=== PATIENT | female | born 1980 | race Caucasian/White ===

== ENCOUNTER → 2019-12-23 | Outpatient (CLI) | payer BC ==
[2019-12-23 13:19] LABS: BILIRUBIN,URINE NEGATIVE (NEG); CLARITY,URINE CLEAR; COLOR,URINE YELLOW; NITRITE,URINE NEGATIVE (NEG); PH,URINE 7.5 (<5.0-8.0); PROTEIN,URINE NEGATIVE (NEG-TRACE); UROBILINOGEN,URINE 0.2 mg/dL (0.2 mg/dL)
[2019-12-23 13:29] LABS: BACTERIA,URINE FEW /HPF (0-FEW); RBC,URINE 0 /HPF (0-2); SQUAMOUS EPITHELIAL CELL,UR MOD /LPF
[2019-12-23 13:55] LABS: BASO # 0.1 x10^3/uL (0.0-0.2); BASO % 1 % (0-3); EOS # 0.1 x10^3/uL (0.0-0.7); EOS % 2 % (0-3); HEMATOCRIT 38.7 % (36.0-47.0); LYMPH # 1.6 x10^3/uL (1.0-4.8); LYMPH % 18 % (24-48); MEAN CORPUSCULAR HEMOGLOBIN 28 pg (25-35); MEAN CORPUSCULAR HGB CONC 34 g/dL (31-37); MEAN CORPUSCULAR VOLUME 84 fL (79-100); MONO # 0.4 x10^3/uL (0.0-1.1); MONO % 5 % (0-9); NEUT # 6.7 x10^3/uL (1.8-7.7); NEUT % 75 % (31-73); PLATELET COUNT 306 x10^3/uL (140-400); RED BLOOD COUNT 4.59 x10^6/uL (3.50-5.40); RED CELL DISTRIBUTION WIDTH 15.1 % (11.5-14.5); WHITE BLOOD COUNT 8.9 x10^3/uL (4.0-11.0)
[2019-12-23 14:19] LABS: ALBUMIN 3.5 g/dL (3.4-5.0); ALBUMIN/GLOBULIN RATIO 0.8 (1.0-1.7); CALCIUM 8.7 mg/dL (8.5-10.1); CREATININE 0.8 mg/dL (0.6-1.0); GFR 80.7; POTASSIUM 3.6 mmol/L (3.5-5.1); TOTAL BILIRUBIN 0.3 mg/dL (0.2-1.0); TOTAL PROTEIN 7.7 g/dL (6.4-8.2)
== END | disposition home or self-care (01) ==
LOC: SURGPAT 12:24
PROVIDERS: ATTEND Obstetrics & Gynecology
DX: Z01.812 Encounter for preprocedural laboratory examination (principal); Z20.828 Contact with and (suspected) exposure to other viral communicable diseases; R10.2 Pelvic and perineal pain; Z91.09 Other allergy status, other than to drugs and biological substances
CPT/HCPCS: 80053; 81001; 85025; U0003

== ENCOUNTER 2019-12-28 06:05 | Observation (INO) | payer BC ==
[~2019-12-28] VITALS: Ht 162.6 cm; Wt 124.3 kg
[2019-12-28] MEDS ORDERED: ESTROGENS, CONJ VAGINAL CREAM 30GM TUBE. ONE (06:59)
[2019-12-28] MEDS ORDERED: INDIGOTINDISULFONATE SODIUM 40 MG/5 ML AMPUL. ONE (06:59)
[2019-12-28] MEDS ORDERED: BUPIVACAINE-EPI 0.5%-1:200000 MPF 30 ML VIAL. ONE (06:59)
[2019-12-28] MEDS ORDERED: BUPIVACAINE MPF 0.25% 30 ML VIAL. ONE (06:59)
[2019-12-28] MEDS ORDERED: HYDROmorphone 2 MG/ML VIAL IV PRN (07:00)
[2019-12-28] MEDS ORDERED: PROCHLORPERAZINE 10 MG/2 ML VIAL. IV PRN (07:00)
[2019-12-28] MEDS ORDERED: IV RINGERS,LACTATED 1000ML 1,000 ML IV SCH (07:00)
[2019-12-28] MEDS ORDERED: LIDOCAINE 1% PF 2 ML VIAL. ID PRN (07:00)
[2019-12-28] MEDS ORDERED: fentaNYL PF VIAL 100 MCG/2 ML VIAL IV PRN (07:00)
[2019-12-28] MEDS ORDERED: ONDANSETRON PF 4 MG/2 ML VIAL. IV PRN ×2 (07:00→12:30)
[2019-12-28] MEDS ORDERED: PROPOFOL 10 MG/ML (20ML) VIAL. IV ONE (07:10)
[2019-12-28] MEDS ORDERED: ROCURONIUM 50 MG/5 ML VIAL. ONE ×2 (07:10→08:34)
[2019-12-28] MEDS ORDERED: LIDOCAINE 2% PF 5 ML VIAL. ONE (07:10)
[2019-12-28] MEDS ORDERED: fentaNYL PF VIAL 100 MCG/2 ML VIAL ONE ×3 (07:10→12:00)
[2019-12-28] MEDS ORDERED: SUCCINYLCHOLINE 200 MG/10 ML VIAL. ONE (07:10)
[2019-12-28] MEDS ORDERED: DEXAMETHASONE SOD PHOS 4 MG/ML VIAL ONE ×2 (07:49→08:07)
[2019-12-28] MEDS ORDERED: DESFLURANE 61 TO 120 MINUTES IH ONE (07:49)
[2019-12-28] MEDS ORDERED: PHENYLEPHRINE in 0.9% NACL PF 1 MG/10 ML SYRINGE. IV ONE (08:14)
[2019-12-28] MEDS ORDERED: CALCIUM CHLORIDE 1,000 MG/10 ML DISP.SYRIN ONE (08:24)
[2019-12-28] MEDS ORDERED: NEOSTIGMINE METHYLSULFATE 5 MG/5 ML SYRINGE. ONE (08:24)
[2019-12-28] MEDS ORDERED: ONDANSETRON PF 4 MG/2 ML VIAL. ONE (08:24)
[2019-12-28] MEDS ORDERED: METHYLENE BLUE 0.5% 10ml AMPULE. ONE ×2 (09:23→11:05)
[2019-12-28] MEDS: fentaNYL PF VIAL 100 MCG/2 ML VIAL IV PRN ×2 (12:04→12:12)
--- NOTE | 2019-12-28 12:16 | PDOC ---
BRIEF OPERATIVE NOTE Date: Dec 28, 2019 Pre-Op Diagnosis pelvic pain, pelvic congestion suggested on sonogram, enlarged uterus, menorrhagia Post-Op Diagnosis same plus pelvic adhesive disease and left sided tuboovarian enlarged complex and cyst adhesed to sidewall and desc colon Procedure Performed LAVH/BSO/lysis of adhesions/cystoscopy/rigid sigmoid scope by Dr. Frias Surgeon Dr. Kaye Bower and intraoperative consult with Dr. Frias general home health occupational therapist Montez Shelley, FA came in to help also Anesthesiologist Dr. Prabhakar Anesthesia Type: General Blood Loss 250cc IV Fluid 2L Urine Output 200cc clear via johnson Specimens Obtained cervix, uterus, bilateral tubes and ovaries, pieces of the cystic complex were also removed during the adhesiolysis Findings enlarged RV uterus, normal right tube and ovary, enlarged cystic complex on left tube and ovary adhesed to sidewall and desc colon; colorectal adhesions to posterior uterus and left side in the posterior cul-de-sac normal bladder with bilateral ureters seen jetting green fluid into bladder (after methylene blue given) rigid sigmoid scope per Dr. Frias Complications none Operative Note [id number] KAYE BOWER MD Dec 28, 2019 12:16
[2019-12-28] MEDS ORDERED: MORPHINE SULFATE 2 MG/ML VIAL. ONE (12:18)
[2019-12-28] MEDS: MORPHINE SULFATE 2 MG/ML VIAL. IV PRN ×2 (12:21→12:25)
[2019-12-28] MEDS ORDERED: SIMETHICONE 80 MG TAB.CHEW PO PRN (12:30)
[2019-12-28] MEDS ORDERED: ZOLPIDEM 5 MG TABLET. PO PRN (12:30)
[2019-12-28] MEDS ORDERED: diphenhydrAMINE HCL 25 MG CAPSULE PO PRN (12:30)
[2019-12-28] MEDS ORDERED: NALOXONE 0.4 MG/ML VIAL. IV PRN (12:30)
[2019-12-28] MEDS ORDERED: 0.9 % SODIUM CHLORIDE 10 ML DISP.SYRIN. IV PRN (12:30)
[2019-12-28] MEDS ORDERED: HYDROcodone/APAP 5/325MG 1 TAB TABLET PO PRN (12:30)
[2019-12-28] MEDS ORDERED: LACTULOSE 20 GM/30 ML SOLUTION. PO PRN (12:30)
[2019-12-28] MEDS ORDERED: diphenhydrAMINE 50 MG/ML VIAL IV PRN (12:30)
[2019-12-28] MEDS ORDERED: MORPHINE SULFATE 2 MG/ML VIAL. IV PRN (12:30)
[2019-12-28] MEDS ORDERED: HYDROmorphone 2 MG/ML VIAL ONE (12:36)
[2019-12-28 13:25] LABS: HEMATOCRIT 34.2 % (36.0-47.0); HEMOGLOBIN 11.3 g/dL (12.0-15.5); RED BLOOD COUNT 4.01 x10^6/uL (3.50-5.40); RED CELL DISTRIBUTION WIDTH 14.6 % (11.5-14.5); WHITE BLOOD COUNT 19.9 x10^3/uL (4.0-11.0)
--- NOTE | 2019-12-28 13:57 | OP ---
DATE OF SURGERY: 12/28/2019 PREOPERATIVE DIAGNOSES: Mildly enlarged uterus on sonogram, menorrhagia suggested pelvic congestion syndrome, pelvic pain and what they said was a small left ovarian cyst. POSTOPERATIVE DIAGNOSES: Mildly enlarged uterus on sonogram, menorrhagia suggested pelvic congestion syndrome, pelvic pain and what they said was a small left ovarian cyst, pretty extensive pelvic adhesive disease, left-sided tubo-ovarian complex that was cystic in nature that was adhesed to the left sidewall and the descending colon and colorectal adhesions to the posterior uterus and left sidewall and where I could not even see the posterior cul-de-sac immediately, the cervix and the cul-de-sac under the uterus because there were bowel adhesions. PROCEDURE: Laparoscopic-assisted vaginal hysterectomy, bilateral salpingo-oophorectomy, lysis of adhesions, cystoscopy and a rigid sigmoid scope. SURGEONS: Dr. Yamini Bower, myself and there was an intraoperative consult with General Surgery, Dr. Lawrence Frias. REMOTE SENSING ANALYST: SHUBHAM Dumont, came in to help also. ANESTHESIOLOGIST: Shad Prabhakar MD ESTIMATED BLOOD LOSS: 250 mL. URINE OUTPUT: 200 mL, clear via Cadena catheter. INTRAVENOUS FLUIDS: Two liters of crystalloid. SPECIMENS: Cervix, uterus, bilateral tubes and ovaries. There were also pieces of the cystic complex from the left side that were taken out during the adhesiolysis when the cyst was drained and the cyst was peeled off the sidewall. FINDINGS: She had an enlarged retroverted uterus, normal right tube and ovary and large cystic complex involving the left tube and ovary adhesed to the left sidewall and descending colon. Again, she also had colorectal adhesions posterior to the uterus and the cul-de-sac on the posterior uterus, cervix and in the cul-de-sac and going to the left side. Later we observed a normal bladder with both ureteral openings seen jetting into the bladder with green fluid from the methylene blue given and then Dr. Frias did a rigid sigmoid scope, which he said looked good inside and there was no bubbling or anything when we filled the abdomen with fluid to make sure there was no trauma to the colon from the adhesions. So, a normal rigid sigmoidoscope per Dr. Frias. COMPLICATIONS: None. DESCRIPTION OF PROCEDURE: This patient was taken to the operating room where general anesthesia was placed. The patient was placed in dorsal lithotomy position in [facility]. The patient's abdomen and vagina were both prepped and draped in the normal sterile fashion and a Cadena catheter had been inserted under sterile technique. Upon my arrival, a timeout was performed. Once everyone agreed on the patient, the site, the procedure, the antibiotics, the procedure was initiated. A bivalve speculum was placed in the patient's vagina. A single-tooth tenaculum was used to grasp the anterior lip of the cervix. A 10 mL of 0.5% Marcaine with epinephrine was used to circumferentially inject around the cervix. This was for both hemodissection and hemostatic purposes later. The [employer] uterine manipulator was then placed through the endocervical os, locked on the single tooth tenaculum and the bivalve speculum was then removed. Top gloves were discarded and changed. Attention was then turned to the abdomen, where a supraumbilical skin incision was made with the scalpel. It was carried down through the subcuticular layer to the fascia with a curved Rea clamp. The 5 mm Visiport was used to directly enter the abdominal cavity. Opening patient pressure was 3-4 mmHg. Carbon dioxide gas was used to then appropriately insufflate the abdominal cavity to maintain a pressure of 15 mmHg. Once this was done, the patient was placed in Trendelenburg position. Right and left lower quadrant ports were placed under direct visualization by first transilluminating the abdominal wall, finding an area clear of any vasculature, making sure there were no adhesions on the inside, which there were not here, making a small incision and placing the 5 mm disposable trocars atraumatic and under direct visualization, 4-5 mL of air was placed in both of these trocar cuffs. The port was then moved laterally to look at the umbilical port. Once it was seen to be good, it was also insufflated with 4-5 mL of air in the trocar cuff. The camera was moved back to the midline. Again, we had maximum Trendelenburg to find a normal right tube and ovary, normal bladder, enlarged uterus that was retroverted. There were tubo-ovarian complex and then adhesions below the uterus. At this point, it was decided to have General Surgery come in to assist with the adhesive disease, the colorectal adhesions to the uterus in the left side where I could not even see the cul-de-sac. They were pretty dense adhesions. So, Dr. Frias did come in for that. In the meantime, the right tube and ovary were normal, they could be elevated. The ureter could be clearly seen coursing low in the pelvis. So, I went ahead and took the right tube and ovary, crossing the infundibulopelvic ligament with the LigaSure, right under the ovary, cauterizing and cutting, going over towards the ovary, crossing the right round ligament and then actually going down and making the bladder flap sharply as well with the monopolar hook elevating the bladder flap and cutting across it and peeling it down, so the right tube and ovary and the bladder flap was made. At this point, Dr. Frias came in and was helping with the adhesions. As I was trying to dig out the left tube and ovary, there was a cyst that popped on this side and some of the cyst wall was peeling off, so we could actually see the ovary inside this complex and we were able to grab it and manipulate it and peel it out of the fossa on the left sidewall and he will dictate the adhesiolysis posterior to the uterus with the bowel and then he also helped to me make sure to get up the left tube and ovary off the sidewall. We both looked for quite some time for the ureter, but short of opening up the retroperitoneum. We knew where it should go. We could see where it would crossed right at the IP, but we could not watch it go down through the pelvis due to all the adhesive disease on the left side with the tube and ovary and the bowel over there. So we did give methylene blue to watch it too to make sure there was no discoloration excavation, anything leaking and then I was going to do a cystoscopy also afterwards to check the ureters, but once the tube and ovary were over, I was able to literally almost pull it all the way over right on the uterus and go down the side of the uterus and got the blood supply there, met the bladder flap there, got my uterines stayed inside that pedicle and went as low as I could because he had cleared up all the posterior adhesions for me. I went back to the right side and when I taken the right tube and ovary and got in the right round, I had already secured the uterine vessels. I stayed inside this pedicle and took it all the way down to the uterosacral on this side as well, so the uterus was now clear, free, completely blanched. So I decided to go vaginally. Dr. Frias did leave during the hysterectomy part once he helped me get that left tube and ovary off the sidewall. I took down the rest of the uterus abdominally, went below to do the hysterectomy and he was going to come back in and do the rigid sigmoidoscope at the end. So at this point, I am doing the hysterectomy, so we go below. The single tooth and Valtchev were removed. A weighted speculum was placed in the patient's vagina. Thyroid Cindy clamps were placed on the anterior and posterior lips of the cervix respectively. A scalpel was used to make a circumferential incision in the cervix. An open Ray-Khloe 4 x 4 was used to gently push up the anterior bladder peritoneum and the anterior cul-de-sac was digitally and bluntly entered very easily. A curved Surinder was placed in here and the Ray-Khloe had been removed. The cervix was elevated and the posterior cul-de-sac was attempted to be sharply entered. There was so much thickness and adhesions that I gently put in the long weighted and just stayed hugged right under the uterus. I was able to get the left uterosacral, it was doubly clamped with curved Heaneys, cut with curved Smith scissors and suture ligated x 2 with 0 Vicryl. Second one was taken through the vaginal cuff securing uterosacral ligament to the vaginal cuff. This was done exactly the same on the right side, double clamping the uterosacrals with curved Wan's, cutting with curved Smith scissors and suture ligating x 2 with 0 Vicryl, taking the second one through the vaginal cuff and tagging it with a straight Rea clamp and cutting and passing the needle back off. At this point, I was able to get a mixture of curved clamp around the remaining pedicles to delineate it and the vaginal LigaSure was used to cauterize and cut the remaining pedicle on the left and exactly the same on the right. Once this was done, the cervix, uterus, bilateral tubes and ovaries were delivered in total and passed off for permanent pathology. I was able to locate the anterior bladder peritoneum with a long Allis and I could see the bladder already looking dark greenish blue from that methylene blue that was given earlier as well as it was filling with the colored dyed urine, but I was able to grab it. I took out the long weighted Kirby speculum and replaced it with the short weighted vaginal speculum. I used a sponge stick to examine the pedicles. All the pedicles appeared dry. There was some posterior cuff like peritoneal bleeding and I am sure this was because we never got it in the beginning or got the stitch here, so I actually took an #0 Vicryl stitch and went along and tried to sew like across the whole way the peritoneal edge to the cuff and almost all the bleeding did subside. It helped tremendously. So at this point, I used a full length 2-0 Vicryl and went through the anterior bladder peritoneum, left uterosacral ligament, posterior peritoneum and right uterosacral ligament, thus closing the peritoneum in a pursestring like fashion. Once this was done, both left and right uterosacral tags were clipped and a full length 2-0 Vicryl was used to close the cuff in an anterior to posterior running locked fashion and it was tied to that posterior cuff tag. Everything was clipped. I did put a couple imbricating stitches in just for hemostasis and with excellent results. At this point, a cystoscopy was performed. I got in and unfortunately it had been a while since we gave it because we were still doing adhesions and the hysterectomy, so we had to give more methylene blue. The bladder looked normal. No trauma. Normal bladder bubble. Again, there was already green in the Cadena and you know it was draining well, but I gave more methylene blue so I could positively identify both ureters jetting into the bladder. Once this was done, the cystoscopy was ended. All gloves were discarded and changed. All counts had been correct x 2 by OR personnel below and we were going to go back above for a second look. At this point, we called Dr. Frias back in to see when he did do the rigid sigmoid scope with us looking from above as well, so I copiously irrigated both right and left, pericolic gutters were cleared, the cuff actually looked good. Tisseel was placed over the cuff with excellent results. Right upper quadrant like I said bilateral pericolic gutters were clear. So, he came in and did the rigid sigmoidoscope again everything per him, but verbally he said there was no obvious trauma to the rectum and he inflated it with air. We watched from above. We had filled the irrigation fluid and watched it fill, there was no bubbling or anything to indicate any kind of trauma to the rectum, so he ended that part and that was ended. Once this was done, I emptied all the fluid, placed Carlita over everything. While he was in there, doing the adhesions, I had the 3 ports, he put, and a fourth left upper quadrant port under direct visualization as well, a 5 mm and insufflated that cuff for operate because we needed extra hands for the adhesions and to manipulate and retract. So at this point, all three, the left lower quadrant, the left upper quadrant, right lower quadrant, all those balloons were deflated and removed under direct visualization. Gas was released from the umbilical port. It was also removed. All 4 port sites were closed with 4-0 nylon at the skin and injected with 10 mL of local of the 0.5% Marcaine with epinephrine. The Cadena catheter was removed. She was awakened from anesthesia and the patient was taken to recovery room in stable condition. YAMINI BOWER MD DR: LORENZA/wendy JOB#: [id number] / [id number]
--- NOTE | 2019-12-28 14:02 | PDOC4 ---
OPERATIVE NOTE Date: Date: Dec 28, 2019 Pre-Op Diagnosis: Pelvic pain Post-Op Diagnosis: same, suspect endometriosis Procedure Performed: laparoscopic lysis of adhesions, rigid sigmoidoscope Surgeon: John Louise Anesthesia Type: GETA Blood Loss: 100 Specimans Obtained: none Findings: Extensive adhesions and inflammation around uterus, normal sigmoid rigid sigmoidoscopy Complications: none Operative Note: Dr. Bower requested general surgical consultation. Pt was under Dr. Bower's excellent care on presentation and completely stable. Dr. Bower noted extensive inflammatory changes and appropriately requested assistance in dissection to minimize rectal colonic injury. Laparoscopic enterolysis was performed in mobilizing the colon off the posterior uterus. No overt colonic injury was noted. Procedure was then turned back over to Dr. Bower's care. Dr. Bower completed the hysterectomy and performed cystoscopy demonstrating no obstruction of bilateral ureters. Rigid sigmoidoscopy was then performed which demonstrated no colonic injury or air leak or bleeding. Thank you for allowing participation in the care of this patient. JOHN LOUISE MD Dec 28, 2019 14:01
[2019-12-28 14:10] VITALS: BP 99/49
[2019-12-28] MEDS ORDERED: ESTRADIOL WEEKLY 0.1 MG PATCH. TD SCH (14:15)
[2019-12-28 14:25] VITALS: BP 94/55
[2019-12-28 14:55] VITALS: BP 89/57
[2019-12-28 15:10] VITALS: BP 99/56
[2019-12-28 16:20] VITALS: BP 92/51
[2019-12-28 20:00] VITALS: BP 115/77
[2019-12-28] MEDS: oxyCODONE/APAP 5/325 1 TAB TABLET PO PRN (20:44)
[2019-12-29 00:45] VITALS: BP 122/76
[2019-12-29 04:30] VITALS: BP 119/67
[2019-12-29] MEDS: oxyCODONE/APAP 5/325 1 TAB TABLET PO PRN ×2 (04:30→10:25)
[2019-12-29 06:42] LABS: CALCIUM 8.1 mg/dL (8.5-10.1); CREATININE 0.7 mg/dL (0.6-1.0); GFR 94.2; POTASSIUM 4.2 mmol/L (3.5-5.1)
[2019-12-29] MEDS ORDERED: DOCUSATE SODIUM 100 MG CAPSULE. PO PRN (08:15)
[2019-12-29] MEDS ORDERED: IBUPROFEN 400 MG TABLET. PO PRN (08:15)
--- NOTE | 2019-12-29 09:56 | PDOC ---
SURGICAL PROGRESS NOTE DATE: 12/29/19 TIME: 09:51 Subjective Saw pt at 0730am prior to surgery and was up in bed in no distress. Discussed surgery with her at length. Doing well. Scant VB, tolerating regular diet, voiding without catheter, +flatus. Vital Signs Vital Signs Date Time Temp Pulse Resp B/P (MAP) Pulse Ox O2 Delivery O2 Flow Rate FiO2 12/29/19 05:30 18 Room Air 12/29/19 04:30 98.9 94 119/67 (84) 95 98.9 12/28/19 12:55 10 I&O Intake and Output 12/29/19 07:00 Intake Total 4250 ml Output Total 2700 ml Balance 1550 ml Intake Oral 1100 ml IV Total 3150 ml Output Urine Total 2450 ml Estimated Blood Loss 250 ml PATIENT HAS A IRVIN: No General: Alert, Oriented X3, Cooperative, No acute distress HEENT: Atraumatic Heart: Regular rate Abdomen: Soft, No tenderness, Other (all 4 port sites c/d/i) Extremities: No clubbing, No cyanosis, No edema, No tenderness/swelling Skin: No rashes, No breakdown Neuro: Normal speech Psych/Mental Status: Mental status NL, Mood NL Labs Laboratory Tests Test 12/28/19 06:35 12/28/19 13:05 12/29/19 05:25 Bedside Urine HCG, Qualitative Hcg negative (Negative) White Blood Count 19.9 x10^3/uL (4.0-11.0) Red Blood Count 4.01 x10^6/uL (3.50-5.40) Hemoglobin 11.3 g/dL (12.0-15.5) Hematocrit 34.2 % (36.0-47.0) 29.9 % (36.0-47.0) Mean Corpuscular Volume 85 fL (79-100) Mean Corpuscular Hemoglobin 28 pg (25-35) Mean Corpuscular Hemoglobin Concent 33 g/dL (31-37) Red Cell Distribution Width 14.6 % (11.5-14.5) Platelet Count 315 x10^3/uL (140-400) Sodium Level 137 mmol/L (136-145) Potassium Level 4.2 mmol/L (3.5-5.1) Chloride Level 104 mmol/L (98-107) Carbon Dioxide Level 24 mmol/L (21-32) Anion Gap 9 (6-14) Blood Urea Nitrogen 8 mg/dL (7-20) Creatinine 0.7 mg/dL (0.6-1.0) Estimated GFR (Cockcroft-Gault) 94.2 Glucose Level 118 mg/dL (70-99) Calcium Level 8.1 mg/dL (8.5-10.1) Laboratory Tests Test 12/28/19 13:05 12/29/19 05:25 White Blood Count 19.9 x10^3/uL (4.0-11.0) Red Blood Count 4.01 x10^6/uL (3.50-5.40) Hemoglobin 11.3 g/dL (12.0-15.5) Hematocrit 34.2 % (36.0-47.0) 29.9 % (36.0-47.0) Mean Corpuscular Volume 85 fL (79-100) Mean Corpuscular Hemoglobin 28 pg (25-35) Mean Corpuscular Hemoglobin Concent 33 g/dL (31-37) Red Cell Distribution Width 14.6 % (11.5-14.5) Platelet Count 315 x10^3/uL (140-400) Sodium Level 137 mmol/L (136-145) Potassium Level 4.2 mmol/L (3.5-5.1) Chloride Level 104 mmol/L (98-107) Carbon Dioxide Level 24 mmol/L (21-32) Anion Gap 9 (6-14) Blood Urea Nitrogen 8 mg/dL (7-20) Creatinine 0.7 mg/dL (0.6-1.0) Estimated GFR (Cockcroft-Gault) 94.2 Glucose Level 118 mg/dL (70-99) Calcium Level 8.1 mg/dL (8.5-10.1) I have reviewed the following labs, vitals, nursing Cardiovascular: No pertinent hx Pulmonary: No pertinent hx GI: No pertinent hx Heme/Onc: No pertinent hx Psych: No pertinent hx Rheumatologic: No pertinent hx Infectious disease: No pertinent hx ENT: No pertinent hx Renal/: No pertinent hx Endocrine: No pertinent hx Dermatology: No pertinent hx Assessment/Plan POD#1 s/p LAVH/BSO/lysis of adhesions/cystoscopy intraop consult with Dr. Frias to assist with bowel adhesions and rigid sigmoid scope, much appreciated Routine PO Care d/c to home later today NPV x 6 weeks light/limited activity x 2 weeks keep scheduled one week follow up already has narcotics filled at home NO driving while on narcotic pain meds ok for OTC ibuprofen, prn call or return sooner for any questions or concerns not limited to but including pain unrelieved with pain meds, increased or unexplained vaginal bleeding or T>100.4 Justicifation of Admission Dx: Justifications for Admission: Justification of Admission Dx: Comment: (postoperative) YAMINI SHEPHERD MD Dec 29, 2019 09:56
--- NOTE | 2019-12-29 10:00 | PDOC3 ---
Discharge Summary Visit Information Date of Admission: Dec 28, 2019 Date of Discharge: Dec 29, 2019 Admitting Diagnosis Comment: pelvic pain, menorrhagia Final Diagnosis same plus pelvic adhesive disease with suspected endometriosis Brief Hospital Course Allergies Allergies Coded Allergies Type Severity Reaction Last Updated Verified aluminum hydroxide Allergy Intermediate HIVES 12/23/19 Yes calcium carbonate Allergy Intermediate HIVES 12/23/19 Yes magnesium Allergy Intermediate HIVES 12/23/19 Yes magnesium hydroxide Allergy Intermediate HIVES 12/23/19 Yes simethicone Allergy Intermediate HIVES 12/23/19 Yes Vital Signs Vital Signs Date Time Temp Pulse Resp B/P (MAP) Pulse Ox O2 Delivery O2 Flow Rate FiO2 12/29/19 05:30 18 Room Air 12/29/19 04:30 98.9 94 119/67 (84) 95 98.9 12/28/19 12:55 10 Lab Results Laboratory Tests Test 12/28/19 06:35 12/28/19 13:05 12/29/19 05:25 Bedside Urine HCG, Qualitative Hcg negative (Negative) White Blood Count 19.9 x10^3/uL (4.0-11.0) Red Blood Count 4.01 x10^6/uL (3.50-5.40) Hemoglobin 11.3 g/dL (12.0-15.5) Hematocrit 34.2 % (36.0-47.0) 29.9 % (36.0-47.0) Mean Corpuscular Volume 85 fL (79-100) Mean Corpuscular Hemoglobin 28 pg (25-35) Mean Corpuscular Hemoglobin Concent 33 g/dL (31-37) Red Cell Distribution Width 14.6 % (11.5-14.5) Platelet Count 315 x10^3/uL (140-400) Sodium Level 137 mmol/L (136-145) Potassium Level 4.2 mmol/L (3.5-5.1) Chloride Level 104 mmol/L (98-107) Carbon Dioxide Level 24 mmol/L (21-32) Anion Gap 9 (6-14) Blood Urea Nitrogen 8 mg/dL (7-20) Creatinine 0.7 mg/dL (0.6-1.0) Estimated GFR (Cockcroft-Gault) 94.2 Glucose Level 118 mg/dL (70-99) Calcium Level 8.1 mg/dL (8.5-10.1) Laboratory Tests Test 12/28/19 13:05 12/29/19 05:25 White Blood Count 19.9 x10^3/uL (4.0-11.0) Red Blood Count 4.01 x10^6/uL (3.50-5.40) Hemoglobin 11.3 g/dL (12.0-15.5) Hematocrit 34.2 % (36.0-47.0) 29.9 % (36.0-47.0) Mean Corpuscular Volume 85 fL (79-100) Mean Corpuscular Hemoglobin 28 pg (25-35) Mean Corpuscular Hemoglobin Concent 33 g/dL (31-37) Red Cell Distribution Width 14.6 % (11.5-14.5) Platelet Count 315 x10^3/uL (140-400) Sodium Level 137 mmol/L (136-145) Potassium Level 4.2 mmol/L (3.5-5.1) Chloride Level 104 mmol/L (98-107) Carbon Dioxide Level 24 mmol/L (21-32) Anion Gap 9 (6-14) Blood Urea Nitrogen 8 mg/dL (7-20) Creatinine 0.7 mg/dL (0.6-1.0) Estimated GFR (Cockcroft-Gault) 94.2 Glucose Level 118 mg/dL (70-99) Calcium Level 8.1 mg/dL (8.5-10.1) Brief Hospital Course Ms. Nixon is a 39 old female who presented with pelvic pain and menorrhagia. Known small left ovarian cyst from sonogram, but upon laparoscopic visualization was found to have pelvic adhesions also. Dr. Frias came in for intraoperative consult to assist with bowel adhesions and he did the rigid sigmoid scope also. She underwent LAVH/BSO/lysis of adhesions and cystoscopy on my part as well. She did well during the surgery and has had an uncomplicated postoperative course. She is voiding without catheter, tolerating regular diet without n/v, ambulating well, passing flatus. She will be discharged home later today. Assessment Assessment POD#1 s/p LAVH/BSO/lysis of adhesions/cystoscopy intraop consult with Dr. Frias to assist with bowel adhesions and rigid sigmoid scope, much appreciated Routine PO Care d/c to home later today NPV x 6 weeks light/limited activity x 2 weeks keep scheduled one week follow up already has narcotics filled at home NO driving while on narcotic pain meds ok for OTC ibuprofen, prn call or return sooner for any questions or concerns not limited to but including pain unrelieved with pain meds, increased or unexplained vaginal bleeding or T>100.4 Discharge Information Condition at Discharge: Stable Follow Up: Weeks Disposition/Orders: D/C to Home Scheduled Info (No Known Medications Prior To Admisstion) Each, 1 EACH NO for NO, (Reported) Entered as Reported by: CINTIA LEBLANC on 12/28/19653 Last Action: New Order on 12/28/19653 by CINTIA LEBLANC Patient Instructions Patient Instructions POD#1 s/p LAVH/BSO/lysis of adhesions/cystoscopy intraop consult with Dr. Frias to assist with bowel adhesions and rigid sigmoid scope, much appreciated Routine PO Care d/c to home later today NPV x 6 weeks light/limited activity x 2 weeks keep scheduled one week follow up already has narcotics filled at home NO driving while on narcotic pain meds ok for OTC ibuprofen, prn call or return sooner for any questions or concerns not limited to but including pain unrelieved with pain meds, increased or unexplained vaginal bleeding or T>100.4 Justicifation of Admission Dx: Justifications for Admission: Justification of Admission Dx: Comment: (postoperative) YAMINI SHEPHERD MD Dec 29, 2019 10:00
[2019-12-29 12:00] VITALS: BP 117/69
--- NOTE | 2019-12-29 12:26 | NUR ---
Discharge Discharge and incisional care instructions given to patient and at this time. no questions or concerns. To follow up with DR Bower in 2 weeks. Patient ambulated off unit with her and all her belongings.
--- NOTE | 2019-12-30 09:08 | PATHOLOGY ---
[facility] Accession Number: [id number] . 01 Material submitted: . uterus - UTERUS, CERVIX, BILATERAL FALLOPIAN TUBES AND OVARIES. Modifiers: bilateral . 01 Clinical history: . PELVIC PRESSURE PELVIC PAIN, LEFT OVARIAN CYST LAVH, BSO . 02 Diagnosis: Uterus and bilateral fallopian tubes and ovaries, laparoscopic assisted vaginal hysterectomy with bilateral salpingo-oophorectomy: - Adenomyosis, uterine corpus, subbasal, with myometrial hypertrophy (uterine weight 187 grams). - Hemorrhagic posterior uterine serosal adhesions. - Early secretory endometrium. - Small intramural leiomyoma. - Congestion of bilateral fallopian tubes. - Cystic follicle of right ovary. - Cystic follicle of left ovary showing hemorrhage and regressive changes. . (JPM:[facility] 12/29/2019) [facility] 12/29/2019 [facility] . 02 Comment: There is no atypia or evidence of malignancy. (JP:[facility] 12/29/2019) . 02 Electronically signed: . Chad Renteria MD, Pathologist NPI- [id number] . 01 Gross description: . The specimen is received in formalin labeled "Martha Nixon, uterus, cervix, bilateral fallopian tubes and ovaries". Received is a 187 g, 11.1 x 6.8 x 5.8 cm uterus with attached cervix and attached adnexa, weighing 21 and 13 g, left and right, respectively. The uterine serosa is pink-espino in appearance with a moderate amount of overlying red-brown adhesions on the posterior aspect. The 1.7 cm cervical os is surrounded by pink-espino, smooth to disrupted ectocervical mucosa. The uterus is oriented using the peritoneal reflection and the anterior paracervical margin is inked black. The uterus is opened laterally to reveal a pink-gustafson endocervical canal measuring 2.9 cm in length. The endometrial cavity is triangular measuring 6.3 cm in length by 3.6 cm in width. The endometrium is pink-espino, glistening to hemorrhagic in appearance and measures up to 0.3 cm in thickness. Serial sectioning reveals a espino-pink, trabeculated myometrium measuring up to 2.8 cm in thickness displaying a single possible intramural fibroid measuring 0.4 cm (which is identified upon palpation). . The left adnexa consists of a fimbriated fallopian tube measuring 6.8 cm in length by up to 0.8 cm in diameter attached to a 4.1 x 2.6 x 2.1 cm ovary. Sectioning through the fallopian tube reveals a patent lumen and the fallopian tube appears grossly unremarkable. Sectioning through the ovary reveals a unilocular cystic structure measuring 0.9 cm filled with blood coagulum. The remaining cut surfaces display a slight amount of normal pale espino ovarian stroma. . The right adnexa consists of a fimbriated fallopian tube measuring 6.4 cm in length by up to 0.7 cm in diameter attached to a 2.9 x 2.0 x 1.3 cm ovary. Sectioning through the fallopian tube reveals a patent lumen and the fallopian tube appears grossly unremarkable. Sectioning through the ovary reveals a unilocular cystic structure having fluid contents. The remaining cut surfaces display pale espino, normal ovarian stroma. The specimen is submitted representatively as follows: . A1 12:00 cervix A2 6:00 cervix A3 serosal adhesions A4 anterior endometrium A5 posterior endomyometrium A6 possible intramural fibroid A7-A8 left adnexa A9 right adnexa. ([facility]; 12/28/2019) [facility] 12/29/2019 1418 Local . 02 Pathologist provided ICD-10: N80.0, N83.01, N83.02, D25.1, N85.00 . 02 CPT . 659646 Specimen Comment: A courtesy copy of this report has been sent to [phone] Specimen Comment: Report sent to Performed at: 01 [facility] [address] [place] [address] [address], [place] [id number] MD Geovani Gudino MD Phone: [phone] Performed at: 02 [facility] [address] [place], [place] [id number] MD Chad Renteria MD Phone: [phone]
== END 2019-12-29 12:32 | disposition home or self-care (01) ==
LOC: SURG 06:05 → EDUNIT# 07:30 → 3 NORTH 12:28
PROVIDERS: ADMIT Obstetrics & Gynecology; ATTEND Obstetrics & Gynecology
DX: N85.2 Hypertrophy of uterus (principal); N92.0 Excessive and frequent menstruation with regular cycle; N83.202 Unspecified ovarian cyst, left side; N73.6 Female pelvic peritoneal adhesions (postinfective); N85.4 Malposition of uterus; R10.2 Pelvic and perineal pain; Z79.899 Other long term (current) drug therapy
CPT/HCPCS: 36415; 45330; 58552; 80048; 81025; 85014; 85027; 86850; 86900; 86901; G0378; G0379; J0330; J0690; J1100; J1170; J2270; J2370; J2405; J2704; J2710; J3010; J3490; J7030; Q9968